=== PATIENT | female | born 1960 | race Caucasian/White ===

== ENCOUNTER 2016-06-24 08:24 | Day surgery (SDC) | payer OTHER ==
[~2016-06-24] VITALS: Ht 152.4 cm; Wt 60.8 kg
[~2016-06-24 08:24] MED LIST: ALPR0.5T PO; DICY20TA59 PO; HYDR-906 PO; MIRT7.5T8 PO; OMEP20CA16 PO; PROP10TA6 PO
[2016-06-24 10:05] VITALS: Ht 152.4 cm; Wt 60.8 kg
[2016-06-24] MEDS ORDERED: SIMV20TA97 PO (10:22)
[2016-06-24 11:22] VITALS: BP 140/76; PULSE 73; RESP 20
[2016-06-24] MEDS ORDERED: FENTAnyl 50 MCG/ML VIAL ONE (11:54)
[2016-06-24] MEDS ORDERED: MIDAZOLAM 1 MG/ML 2 ML INJ ONE ×3 (11:54)
[2016-06-24 12:00] VITALS: BP 93/56; PULSE 59; RESP 16
[2016-06-24 12:54] VITALS: BP 100/60; PULSE 62; RESP 16
--- NOTE | 2016-06-24 18:27 | GILP ---
DATE OF PROCEDURE: PROCEDURE PERFORMED: Colonoscopy with biopsy. INDICATION: A 56-year-old female undergoing this procedure for colon cancer screening. The risks o f the procedure, related and unrelated complications, anesthetic risks, alternatives discussed. Inf ormed consent was obtained. DESCRIPTION OF PROCEDURE: The patient was brought to the GI lab, sedated with Versed and fentanyl. After optimal sedation, scope was passed with much ease into rectum, advanced through sigmoid, desc ending, transverse colon all the way into cecum. IC valve and appendiceal orifice identified. In t he presacral area, there was a 1 cm ulceration with granulation tissue. It was in ____ area. Class ical crater was not seen. Three to 4 biopsies obtained. Rest of the colon appeared normal. Retrov ersion done, it was normal. Scope was straightened out and removed with good patient tolerance. IMPRESSION: 1. Normal finding all the way into cecum except granulation tissue, probably healing ulcer in the p resacral area 1 cm in diameter. 2. Rest of the colon was normal. 3. Clarity was good. 4. The cleanliness was good to adequate. PLAN: Review the histopathology of the biopsy, stay on a high-fiber diet. Dictated By: DEANDRE VELAZQUEZ/MELISSA Conf#: [id number] DID#: [id number]
== END 2016-06-24 13:01 | disposition home or self-care (01) ==
LOC: GIL 08:24
PROVIDERS: ATTEND Internal Medicine Gastroenterology
DX: Z12.11 Encounter for screening for malignant neoplasm of colon (principal); F41.9 Anxiety disorder, unspecified
CPT/HCPCS: 45380; 88305; J2250; J3010; Z7610